=== PATIENT | male | born 1965 | race Asian ===

== ENCOUNTER 2021-02-16 10:16 | Outpatient (CLI) | payer BC | END 2021-02-16 23:59 | disposition home or self-care (01) | LOC: CT 10:16 | PROVIDERS: ATTEND Orthopaedic Surgery Hand Surgery | DX: S52.512A Displaced fracture of left radial styloid process, initial encounter for closed fracture (principal); M79.89 Other specified soft tissue disorders; X58.XXXA Exposure to other specified factors, initial encounter; Y93.89 Activity, other specified; Y92.89 Other specified places as the place of occurrence of the external cause; Y99.8 Other external cause status | CPT/HCPCS: 73200 ==